=== PATIENT | female | born 1955 | race Caucasian/White ===

== ENCOUNTER 2017-03-16 00:20 | Inpatient (IN) | payer OTHER, MEDICARE ==
[~2017-03-16] VITALS: Ht 160 cm; Wt 63.5 kg
[~2017-03-16 00:20] MED LIST: ACET-2619 PO; AMLO5TAB PO; ASPI81CT89 PO; BACL10TA4 PO; CALC100T4 PO; CARV6.25 PO; CATALYN PO; MAGN400T11 PO; METF500T PO; NITR0.4T2 SL; PARO30TA22 PO; SIMV10TA1 PO; [UNRECOGNIZED DRUG - CODE] PO; [UNRECOGNIZED DRUG - OTHER] PO; [UNRECOGNIZED DRUG - OTHER] PO
--- NOTE | 2017-03-16 00:26 | NUR ---
PT ABDIEL INIGUEZS. TAKEN TO BED 4
--- NOTE | 2017-03-16 00:26 | NUR ---
62Y F BIBA FOR FALL, WHILE TRYING TO REACH HER FAN AT [facility]. C/O PAIN TO LEFT LEG AND RIGHT LEG BOTH BELOW THE KNEE. FACILITY GAVE HER NORCO AROUND 2300. PT DENIES ANY N/V/D. HX GERD;HTN;HYPERLIPIDEMIA
--- NOTE | 2017-03-16 00:27 | NUR ---
Dr. Choi evaluating patient at bedside.
[2017-03-16 00:34] VITALS: BP 138/78
--- NOTE | 2017-03-16 00:34 | NUR ---
Janie garcia in [facility] - 03/16/17 at [address] Choi evaluating patient at bedside.
[2017-03-16] MEDS ORDERED: KETOROLAC 30 MG/ML VIAL IVP ONE (00:35)
--- NOTE | 2017-03-16 00:49 | NUR ---
X-Ray at bedside.
[2017-03-16] MEDS ORDERED: MORPHINE SULFATE 4 MG/ML SYR IVP ONE (01:05)
--- NOTE | 2017-03-16 01:48 | NUR ---
XRAY CONT AT BEDSIDE, FAMILY AT BEDSIDE. IVP PAIN MEDS GIVEN. RESP E/U, PERRLA, AT THIS TIME.
[2017-03-16 03:55] LABS: BASOPHILS # (AUTO) 0.3 K/uL (0.00-0.22); BASOPHILS % (AUTO) 3.9 % (0.0-2.0); EOSINOPHILS # (AUTO) 0.2 K/uL (0-0.4); EOSINOPHILS % (AUTO) 1.9 % (0.0-4.0); HEMATOCRIT 39.6 % (36-48); HEMOGLOBIN 12.4 g/dL (12.0-16.0); LYMPHOCYTES # (AUTO) 1.5 K/uL (2.5-16.5); LYMPHOCYTES % (AUTO) 18.9 % (20.5-51.1); MEAN CORPUSCULAR HEMOGLOBIN 25 pg (27-31); MEAN CORPUSCULAR HGB CONC 31 g/dL (33-37); MEAN CORPUSCULAR VOLUME 79 fL (80-94); MONOCYTES # (AUTO) 0.4 K/uL (0.8-1.0); MONOCYTES % (AUTO) 4.9 % (1.7-9.3); NEUTROPHILS # (AUTO) 5.6 K/uL (1.8-7.7); NEUTROPHILS % (AUTO) 70.4 % (42.2-75.2); PLATELET COUNT (AUTO) 161 K/uL (140-450); RED BLOOD CELL COUNT(AUTO) 5.04 MIL/uL (4.20-5.40); RED CELL DISTRIBUTION WIDTH 15.9 % (11.6-13.7)
[2017-03-16 04:05] LABS: ALBUMIN 3.4 g/dL (3.4-5.0); CALCIUM 8.7 mg/dL (8.5-10.1); CARBON DIOXIDE 27.4 mmol/L (21-32); CREATININE 0.6 mg/dL (0.6-1.3); POTASSIUM 4.4 mmol/L (3.5-5.1); TOTAL BILIRUBIN 0.4 mg/dL (0.0-1.0); TOTAL PROTEIN, SERUM 7.3 g/dL (6.4-8.2)
--- NOTE | 2017-03-16 04:33 | NUR ---
AWATING TELE FOR ROOM#
[2017-03-16] MEDS ORDERED: ONDANSETRON 4 MG/2 ML VIAL IM/IVP PRN (04:45)
[2017-03-16] MEDS ORDERED: DOCUSATE SODIUM 100 MG GELCAP PO PRN (04:45)
[2017-03-16] MEDS ORDERED: ACETAMINOPHEN 325 MG TAB PO PRN (04:45)
--- NOTE | 2017-03-16 04:48 | NUR ---
Patient will be admitted to care of DR VILLAR . Admited to TELE 120A. Will go to room 120A. Belongings list completed. Report to KATRIN HANEY .
[2017-03-16 05:25] VITALS: BP 100/57
--- NOTE | 2017-03-16 05:25 | NUR ---
ADMITTED A 62F FROM ER. TELE PT. [facility] HANANE TIBIA,FIBULA NECK FRACTURE. S/P FALL . TRANSFERRED FROM [facility] TO BED WITH PRECAUTION. BEDREST. WITH HL ON THE RT AC #22, CLEAR AND PATENT. REPOSITIONED FOR COMFORT. ORIENTED TO HOSPITAL ROUTINES. PLAN OF CARE DISCUSSED WITH PT, NEED REINFORCEMENT. INSTRUCTED NPO STATUS. BED ON LOW POSITION. CALL LIGHT PLACED WITHIN EASY REACH . WILL CONTINUE TO MONITOR.
[2017-03-16] MEDS: NACL 0.9% 1,000 ML IV SCH ×2 (05:31→20:41)
--- NOTE | 2017-03-16 05:31 | NUR ---
IVF STARTED TO THE RT AC. INFUSING WELL.
[2017-03-16 06:38] LABS: CHOL/HDL RATIO 2.8 (1-4.5); FREE T4 (FREE THYROXINE) 1.09 ng/dL (0.76-1.46); MAGNESIUM 1.9 mg/dL (1.8-2.4); PHOSPHORUS 4.2 mg/dL (2.5-4.9); THYROID STIMULATING HORMONE 5.93 uIU/mL (0.34-3.76)
--- NOTE | 2017-03-16 07:33 | NUR ---
ENDORSED PT IN STABLE CONDITION TO AM NURSE FOR CONTINUITY OF CARE.
--- NOTE | 2017-03-16 07:35 | NUR ---
REPORT RECEIVED FROM MATHEMATICAL TECHNICIAN, PT AWAKE ALERT, RESP EVEN UNLABORED ON RA, SWELLING AND BRUISING NOTED JUST BELOW KNEES BILAT, GOOD PEDAL PULSE NOTED BILAT, PT DENIES ACUTE PAIN, DENIES NEED FOR PAIN MEDS, PLAN OF CARE REVIEWED, PT AWARE OF NPO, SISTER AT BEDSIDE, PT REMAINS ON TOOL ROOM ATTENDANT, SIDE RAILS UP, BED LOCKED IN LOW POSITION, CALL REEVES WITHIN REACH, WILL CONTINUE TO MONITOR.
[2017-03-16 08:00] VITALS: BP 119/67
[2017-03-16] MEDS ORDERED: NITROGLYCERIN 0.4 MG TAB SL PRN (08:50)
--- NOTE | 2017-03-16 08:53 | NUR ---
PER DR VILLAR, 16F DIAZ CATH INSERTED, DARK YELLOW URINE RETURNED, PT HARIS WELL.
--- NOTE | 2017-03-16 08:55 | NUR ---
PATIENT HAS BEEN SCREENED AND CATEGORIZED MODERATE NUTRITION RISK. PATIENT WILL BE SEEN WITHIN 3-5 DAYS OF ADMISSION. 03/18/17-03/20/[address]
[2017-03-16] MEDS ORDERED: NON-FORMULARY ITEM (Potassium Chloride 20 MEQ) PO SCH (09:00)
[2017-03-16] MEDS ORDERED: CALCIUM 100 MG PO SCH (09:00)
[2017-03-16] MEDS ORDERED: DEXTROSE 50% 50 ML SYR IVP PRN (09:05)
[2017-03-16] MEDS ORDERED: metFORMIN 500 MG TAB PO SCH (09:25)
[2017-03-16 09:38] LABS: ANION GAP 12.9 (8-16); CALCIUM 7.9 mg/dL (8.5-10.1); CARBON DIOXIDE 26.2 mmol/L (21-32); CREATININE 0.6 mg/dL (0.6-1.3); POTASSIUM 4.1 mmol/L (3.5-5.1); PROTHROMBIN TIME 10.5 secs (10.8-13.4)
[2017-03-16] MEDS: amLODIPine 5 MG TAB PO SCH (09:38)
[2017-03-16] MEDS: ASPIRIN 81 MG TAB.CHEW PO SCH (09:38)
[2017-03-16] MEDS: CARVEDILOL 6.25 MG TAB PO SCH ×2 (09:39→20:40)
[2017-03-16] MEDS: MAGNESIUM OXIDE 400 MG TAB PO SCH ×2 (09:39→20:40)
[2017-03-16] MEDS: BACLOFEN 10 MG TAB PO SCH (09:39)
[2017-03-16] MEDS: HYDROcodone/APAP 7.5/325 MG 1 TAB PO PRN (09:46)
[2017-03-16] MEDS ORDERED: CALCIUM GLUCONATE 500 MG TAB PO SCH (11:02)
[2017-03-16] MEDS: BLOOD GLUCOSE MONITORING 1 DEV DEV FS SCH ×3 (11:53→20:31)
[2017-03-16 12:02] VITALS: BP 100/63
--- NOTE | 2017-03-16 12:39 | NUR ---
DR SALAZAR TO BEDSIDE FOR EVAL.
--- NOTE | 2017-03-16 13:20 | NUR ---
PLAN FOR MANIPULATION OF BILAT LEGS WITH SPLINT/CAST PLACEMENT UNDER SEDATION. PT AND FAMILY AGREE WITH PLAN. CONSENT SIGNED BY SISTER.
--- NOTE | 2017-03-16 13:29 | NUR ---
PT TAKEN TO OR AT THIS TIME ACCOMPANIED BY SISTER..
[2017-03-16] MEDS ORDERED: PROPOFOL 200 MG/20 ML VIAL IV ONE (13:48)
[2017-03-16] MEDS ORDERED: fentaNYL 0.05 MG/ML VIAL ONE (13:53)
[2017-03-16] MEDS ORDERED: MIDAZOLAM 2 MG/2 ML VIAL ONE (13:53)
[2017-03-16] MEDS ORDERED: KETOROLAC 30 MG/ML VIAL IVP PRN (14:15)
--- NOTE | 2017-03-16 15:08 | NUR ---
PT BACK FROM PACU, REPORT RECEIVED FROM SHAYE HANEY, PT AWAKE ALERT, RESP EVEN UNLABORED ON ROOM AIR, VS 105/56, 76, 96% RA, RR 19, PT REPORTS NO PAIN AT THIS TIME, BIALT LOWER EXT IN BRACES, GOOD CMS DISTALLY, PT DENIES N/V, CLEAR LIQ PO STARTED, CALL REEVES WITH IN REACH, SIDE RAILS UP, BED LOCKED IN LOW POSITION, SISTER AT BEDSIDE, WILL CONTINUE TO MONITOR.
[2017-03-16 16:00] VITALS: BP 106/56
--- NOTE | 2017-03-16 18:00 | NUR ---
PT SITTING UP EATING DINNER, HARIS WELL, PT DENIES PAIN OR DISCOMFORT, PT ON WASTE MANAGEMENT SPECIALIST, CALL REEVES AT BEDSIDE, SIDE RAILS UP, WILL CONTINUE TO MONITOR.
--- NOTE | 2017-03-16 19:00 | NUR ---
PT UPSET ABOUT NOISE FROM ROOM MATE'S VISITORS, STATES SHE IS HURTING BUT DENIES NEED FOR PAIN MEDS, PT STATES IM TOO DISTRACTED WITH NOISE, REQUESTED ROOMMATE TO KEEP NOISE DOWN, SISTER AT BEDSIDE, PLAN OF CARE DISCUSSED, IFV INFUSING, SITE CLEAR, BILAT BRACES IN PLACE, GOOD CMS DISTALLY, WILL CONTINUE TO MONITOR.
--- NOTE | 2017-03-16 19:29 | NUR ---
REPORT GIVEN TO WASH DRILLER HELPER RN, PT IN STABLE CONDITION.
--- NOTE | 2017-03-16 19:30 | NUR ---
RECEIVED REPORT FROM MORNING SHIFT RN AT BEDSIDE, PT IS AAOX4, ABLE TO FOLLOW COMMANDS AND MAKE NEEDS KNOWN. VSS, DENIES PAIN, NO S/S OF SOB/DISTRESS, CLEAR LUNG SOUND, ON RA. DENIES CHEST PAIN, SR ON TELE MONITOR. SOFT ABDOMEN WITH ACTIVE BOWEL SOUNDS, DIAZ CATHETER IN PLACE, UNABLE TO MOVE BLE, AFEBRILE, SKIN IS INTACT, WARM AND DRY TO TOUCH, IV SITE TO RIGHT AC 22GA, RUNNING NS AT 60ML/HR. EXPLAINED PLAN OF CARE TO PT, PT VERBALIZED UNDERSTANDING, PLACED PATIENT AT A COMFORT POSITION, SAFETY MEASURES IN PLACE, CALL LIGHT WITHIN REACH, WILL CONTINUE TO MONITOR.
[2017-03-16 20:00] VITALS: BP 107/62
[2017-03-16] MEDS: INSULIN LISPRO SLIDING SCALE 100 UNITS/ML VIAL SUBQ PRN (20:32)
[2017-03-16] MEDS: SIMVASTATIN 10 MG TAB PO SCH (20:41)
[2017-03-16] MEDS: PARoxetine 10 MG TAB PO SCH (20:47)
[2017-03-17] VITALS: BP 98/60
--- NOTE | 2017-03-17 | NUR ---
PT IS ASLEEP IN BED, VSS, NO C/O PAIN, NO CHANGE OF CONDITION AT THIS TIME.
[2017-03-17 04:00] VITALS: BP 96/61
--- NOTE | 2017-03-17 04:00 | NUR ---
PT IS RESTING IN BED, DENIES PAIN, NO CHANGE OF CONDITION AT THIS TIME. VSS.
[2017-03-17] MEDS: BLOOD GLUCOSE MONITORING 1 DEV DEV FS SCH ×4 (06:50→21:06)
[2017-03-17] MEDS: NACL 0.9% 1,000 ML IV SCH (06:50)
[2017-03-17 07:08] LABS: BASOPHILS # (AUTO) 0.1 K/uL (0.00-0.22); BASOPHILS % (AUTO) 0.9 % (0.0-2.0); EOSINOPHILS # (AUTO) 0.1 K/uL (0-0.4); EOSINOPHILS % (AUTO) 1.5 % (0.0-4.0); HEMATOCRIT 26.8 % (36-48); HEMOGLOBIN 8.7 g/dL (12.0-16.0); LYMPHOCYTES # (AUTO) 1.5 K/uL (2.5-16.5); LYMPHOCYTES % (AUTO) 26.5 % (20.5-51.1); MEAN CORPUSCULAR HEMOGLOBIN 25 pg (27-31); MEAN CORPUSCULAR HGB CONC 33 g/dL (33-37); MEAN CORPUSCULAR VOLUME 76 fL (80-94); MONOCYTES # (AUTO) 0.4 K/uL (0.8-1.0); MONOCYTES % (AUTO) 6.6 % (1.7-9.3); NEUTROPHILS # (AUTO) 3.5 K/uL (1.8-7.7); NEUTROPHILS % (AUTO) 64.5 % (42.2-75.2); PLATELET COUNT (AUTO) 125 K/uL (140-450); RED BLOOD CELL COUNT(AUTO) 3.51 MIL/uL (4.20-5.40); RED CELL DISTRIBUTION WIDTH 15.5 % (11.6-13.7); WHITE BLOOD COUNT (AUTO) 5.6 K/uL (4.8-10.8)
--- NOTE | 2017-03-17 07:08 | NUR ---
REPORT GIVEN TO MORNING SHIFT NURSE FOR CONTINUE OF CARE, PT IS IN STABLE CONDITION AT THIS TIME.
--- NOTE | 2017-03-17 07:20 | NUR ---
REPORT RECEIVED FROM MILK TRUCK DRIVER, PT SLEEPING QUIETLY, AROUSES EASILY BY VOICE, RESP EVEN UNLABORED, SKIN WARM DRY COLOR WNL, BILAT LEGS IN BRACES, GOOD CMS DISTALLY, PLAN OF CARE DISCUSSED, CALL REEVES WITHIN REACH, SIDE RAILS UP, BED LOCKED IN LOW POSITION, WILL CONTINUE TO MONITOR.
[2017-03-17 07:28] LABS: ANION GAP 10.7 (8-16); CALCIUM 7.5 mg/dL (8.5-10.1); CARBON DIOXIDE 23.8 mmol/L (21-32); CREATININE 0.5 mg/dL (0.6-1.3); POTASSIUM 3.5 mmol/L (3.5-5.1)
[2017-03-17 07:29] LABS: MAGNESIUM 1.8 mg/dL (1.8-2.4); PHOSPHORUS 2.5 mg/dL (2.5-4.9)
[2017-03-17 08:00] VITALS: BP 118/57
[2017-03-17] MEDS: MAGNESIUM OXIDE 400 MG TAB PO SCH ×2 (08:00→21:00)
[2017-03-17] MEDS: metFORMIN 500 MG TAB PO SCH (08:01)
[2017-03-17] MEDS: BACLOFEN 10 MG TAB PO SCH (08:01)
[2017-03-17] MEDS: ASPIRIN 81 MG TAB.CHEW PO SCH (08:01)
[2017-03-17] MEDS: CARVEDILOL 6.25 MG TAB PO SCH ×2 (08:02→21:01)
[2017-03-17] MEDS: amLODIPine 5 MG TAB PO SCH (08:02)
[2017-03-17] MEDS: POTASSIUM CHLORIDE 20% 40 MEQ/15 ML UDC PO SCH (08:03)
[2017-03-17] MEDS: HYDROcodone/APAP 7.5/325 MG 1 TAB PO PRN (08:03)
[2017-03-17] MEDS: CALCIUM GLUCONATE 500 MG TAB PO SCH (08:18)
[2017-03-17 09:07] LABS: T4 (THYROXINE) 7.7 ug/dL (4.5-12.0)
[2017-03-17] MEDS: MORPHINE SULFATE 2 MG/ML SYR IVP PRN ×2 (09:24→15:49)
--- NOTE | 2017-03-17 09:24 | NUR ---
PT WITH LARGE BM, PERICARE DONE, BED BATH GIVEN, MEDICATED WITH MORPHINE FOR PAIN, PT HARIS FAIRLY, BIALT LEGS ELEVATED, GOOD CMS DISTALLY, PROXIMAL LATERAL PART OF BRACE PADDED TO PROTECT SKIN, SISTER AT BEDSIDE, PT REMAINS ON BUCKET WASH OPERATOR, BED LOCKED IN LOW POSITION, SIDE RAILS UP, CALL REEVES WITHIN REACH, WILL CONTINUE TO MONITOR.
[2017-03-17] MEDS ORDERED: MUPIROCIN 2% OINT 22 GM TUBE TP SCH (10:35)
--- NOTE | 2017-03-17 11:30 | NUR ---
PT RESTING QUIETLY IN NAD, RESP EVEN UNLABORED, SKIN WARM DRY COLOR WNL, PT DENIES PAIN, BRACES REMAIN IN PLACE, GOOD CMS DISTALLY, PAD CHECKED, DRY NOW, SISTER AT BEDSIDE, FINGER STICK GLUCOSE 119. WILL CONTINUE TO RAMONITA
[2017-03-17] MEDS: CHLORHEXADINE GLUC 2% CLOTH TP SCH (11:49)
[2017-03-17] MEDS: MUPIROCIN 2% OINT 22 GM TUBE TP SCH (11:50)
--- NOTE | 2017-03-17 11:52 | NUR ---
Social Service Note: 10:30 am: I faxed inquiry to [facility], phone number , fax and spoke with Jossie from admission dept. Per December, she will call me back in 30 minutes. 11:35am: I called [facility], December not available, left her message. I called and spoke with Clotilde from [facility] , fax number , I faxed inquiry.
[2017-03-17 12:00] VITALS: BP 108/64
--- NOTE | 2017-03-17 12:59 | NUR ---
Social Service Note: I called and spoke with patient's sister Jaylyn and I explained to her that at this time there is no other accepting snf. Jaylyn verbalized understanding. Per Jaylyn, she would like [place] [facility] [place]
[2017-03-17 13:16] LABS: HEMOGLOBIN A1C 5.9 % (4.8-5.6)
--- NOTE | 2017-03-17 15:02 | NUR ---
PT RESTING QUIETLY IN NAD, RESP EVEN UNLABORED SKIN WARM DRY COLR WNL, POSITION CHANGED, SISTERS AT BEDSIDE, DIAPER DRY, SILL CONTINUE TO MONITOR.
[2017-03-17 16:00] VITALS: BP 111/70
--- NOTE | 2017-03-17 18:20 | NUR ---
PT SITTING UP EATING DINNER, AGGITATED WITH MULTIPLE STAFF ENTERING HER ROOM, PT DENIES PAIN OR DISCOMFORT, DENIES NEED FOR PAIN MED, PT ENCOURAGED TO INFORM NURSE OF ANY PAIN OR DISCOMFORT, SISTER AT BEDSIDE, PT REMAINS ON OVER SHORT AND DAMAGE CLERK, CALL LALA MENDOSA, SAFETY MEASURES IN PLACE, WILL CONTINUE TO MONITOR.
--- NOTE | 2017-03-17 19:09 | NUR ---
REPORT GIVEN TO HAND THERMAL CUTTER NURSE, PT IN STABLE CONDITION
--- NOTE | 2017-03-17 19:10 | NUR ---
RECEIVED REPORT FROM MEDINA MEDRANO AT BEDSIDE. INITIAL ASSESSMENT COMPLETED. PT AAOX4; FORGETFUL AT TIMES. PT EATING DINNER AT THIS TIME. PT BEDREST. PT HAS BILATERAL LOWER EXTREMITIES BRACES DUE TO FIBULA/TIBIAL FRACTURE. PT HAS IV ON RIGHT AC G 22; ASYMPTOMATIC, PATENT AND INTACT INFUSING FLUIDS WELL. ORIENTED PT TO ROOM AND SURROUNDING AND USE OF CALL LIGHT. EXPLAINED PLAN OF CARE TO PT AND SHE VERBALIZES UNDERSTANDING. WILL CONTINUE TO MONITOR PT.
[2017-03-17 20:00] VITALS: BP 113/68
[2017-03-17] MEDS: SIMVASTATIN 10 MG TAB PO SCH (21:00)
[2017-03-17] MEDS: PARoxetine 10 MG TAB PO SCH (21:00)
[2017-03-17] MEDS: INSULIN LISPRO SLIDING SCALE 100 UNITS/ML VIAL SUBQ PRN (21:06)
--- NOTE | 2017-03-17 21:08 | NUR ---
PT TOLERATED 2100 MEDS WELL. WILL CONTINUE TO MONITOR PT.
--- NOTE | 2017-03-17 22:35 | NUR ---
PT WATCHING TV. PT GETS ANGRY WHEN WE WALK IN THE ROOM TO CHECK ON HER. WILL CONTINUE TO MONITOR PT.
--- NOTE | 2017-03-17 23:25 | NUR ---
ASSISTED PT TO AMBULATE TO THE RESTROOM; PT BACK IN BED NOW. PT DENIES DISCOMFORT. WILL CONTINUE TO MONITOR PT. Addendum: 03/18/17 at 0037 by Pura Richardson RN WRONG ENTRY IN WRONG PT.
--- NOTE | 2017-03-17 23:25 | NUR ---
CHECKED ON PT. VS STABLE, PT DENIES PAIN. WILL CONTINUE TO MONITOR PT.
[2017-03-18] VITALS: BP 118/71
--- NOTE | 2017-03-18 02:23 | NUR ---
PT SLEEPING AT THIS TIME, NO SIGNS OF DISTRESS OR DISCOMFORT NOTED. IV FLUIDS INFUSING WELL. WILL CONTINUE TO MONITOR PT.
[2017-03-18 04:00] VITALS: BP 128/75
--- NOTE | 2017-03-18 04:20 | NUR ---
CHECKED PT'S VS. VS STABLE, IV INFUSING FLUIDS WELL. WILL CONTINUE TO MONITOR PT.
[2017-03-18] MEDS: BLOOD GLUCOSE MONITORING 1 DEV DEV FS SCH ×4 (06:32→20:48)
--- NOTE | 2017-03-18 06:33 | NUR ---
PT WATCHING TV AT THIS TIME. NO SIGNS OF DISTRESS OR DISCOMFORT NOTED. WILL CONTINUE TO MONITOR PT.
[2017-03-18] MEDS: NACL 0.9% 1,000 ML IV SCH ×2 (06:44→17:32)
[2017-03-18 07:24] LABS: ANION GAP 8.9 (8-16); CALCIUM 7.3 mg/dL (8.5-10.1); CARBON DIOXIDE 25.6 mmol/L (21-32); CREATININE 0.4 mg/dL (0.6-1.3); POTASSIUM 3.5 mmol/L (3.5-5.1)
--- NOTE | 2017-03-18 07:30 | NUR ---
RECEIVED PATIENT AT BEDSIDE. PATIENT ASLEEP BUT EASILY AROUSABLE. NO S/S OF DISTRESS NOTED. NO C/O PAIN AT THIS TIME. DIAZ CATHETER IN PLACE, DRAINING CLEAR YELLOW URINE. BRACES NOTED TO BILATERAL LEGS AND HIPS. IV TO THE RIGHT AC INTACT AND ASYMPTOMATIC. PATIENT ON TELE MONITORING. BED LOWERED WITH CALL LIGHT WITHIN REACH. WILL CONTINUE TO MONITOR
[2017-03-18 07:32] LABS: BASOPHILS # (AUTO) 0.1 K/uL (0.00-0.22); BASOPHILS % (AUTO) 1.3 % (0.0-2.0); EOSINOPHILS # (AUTO) 0.1 K/uL (0-0.4); EOSINOPHILS % (AUTO) 2.6 % (0.0-4.0); HEMATOCRIT 25.8 % (36-48); HEMOGLOBIN 8.2 g/dL (12.0-16.0); LYMPHOCYTES # (AUTO) 1.6 K/uL (2.5-16.5); LYMPHOCYTES % (AUTO) 30.3 % (20.5-51.1); MEAN CORPUSCULAR HEMOGLOBIN 25 pg (27-31); MEAN CORPUSCULAR HGB CONC 32 g/dL (33-37); MEAN CORPUSCULAR VOLUME 78 fL (80-94); MONOCYTES # (AUTO) 0.4 K/uL (0.8-1.0); NEUTROPHILS # (AUTO) 3.1 K/uL (1.8-7.7); NEUTROPHILS % (AUTO) 58.8 % (42.2-75.2); PLATELET COUNT (AUTO) 117 K/uL (140-450); RED BLOOD CELL COUNT(AUTO) 3.33 MIL/uL (4.20-5.40); RED CELL DISTRIBUTION WIDTH 15.6 % (11.6-13.7); WHITE BLOOD COUNT (AUTO) 5.3 K/uL (4.8-10.8)
--- NOTE | 2017-03-18 07:35 | NUR ---
ENDORSED PLAN OF CARE TO MEDINA MALDONADO IN STABLE CONDITION.
[2017-03-18 08:00] VITALS: BP 115/64
[2017-03-18] MEDS: metFORMIN 500 MG TAB PO SCH (08:43)
[2017-03-18] MEDS: BACLOFEN 10 MG TAB PO SCH (08:43)
[2017-03-18] MEDS: ASPIRIN 81 MG TAB.CHEW PO SCH (08:43)
[2017-03-18] MEDS: CALCIUM GLUCONATE 500 MG TAB PO SCH (08:43)
[2017-03-18] MEDS: MAGNESIUM OXIDE 400 MG TAB PO SCH ×2 (08:43→20:44)
[2017-03-18] MEDS: amLODIPine 5 MG TAB PO SCH (08:44)
[2017-03-18] MEDS: POTASSIUM CHLORIDE 20% 40 MEQ/15 ML UDC PO SCH (08:44)
[2017-03-18] MEDS: CARVEDILOL 6.25 MG TAB PO SCH ×2 (08:44→20:44)
[2017-03-18] MEDS: MORPHINE SULFATE 2 MG/ML SYR IVP PRN (10:09)
--- NOTE | 2017-03-18 10:35 | NUR ---
PATIENT HAD A LARGE BM. STOOL LOOSE IN CONSISTENCY, LIGHT BROWN IN COLOR. NOTIFIED DR DALE. DR SUGGS PUT ORDERS
[2017-03-18] MEDS ORDERED: LOPERAMIDE 2 MG CAP PO PRN (10:40)
[2017-03-18] MEDS: CHLORHEXADINE GLUC 2% CLOTH TP SCH (11:00)
[2017-03-18 12:00] VITALS: BP 103/51
--- NOTE | 2017-03-18 13:00 | NUR ---
PATIENT CALMLY IN BED WATCHING TELEVISION. NO S/S OF DISTRESS NOTED
[2017-03-18 16:00] VITALS: BP 124/68
--- NOTE | 2017-03-18 16:30 | NUR ---
PATIENT REFUSED BLOOD SUGAR CHECK
--- NOTE | 2017-03-18 19:10 | NUR ---
RECEIVED REPORT FROM MEDINA MALDONADO AT BEDSIDE. INITIAL ASSESSMENT COMPLETED. PT AAOX4; FORGETFUL AT TIMES. PT IN BEDREST. PT HAS BILATERAL LOWER EXTREMITIES BRACES DUE TO FIBULA/TIBIAL FRACTURE. PT HAS IV ON LEFT FOREARM G 22; ASYMPTOMATIC, PATENT AND INTACT INFUSING FLUIDS WELL. PT HAS A DIAZ CATHETER IN PLACE. ORIENTED PT TO ROOM AND SURROUNDING AND USE OF CALL LIGHT. EXPLAINED PLAN OF CARE TO PT AND SISTER WHO IS AT BEDSIDE AND THEY VERBALIZE UNDERSTANDING. WILL CONTINUE TO MONITOR PT.
--- NOTE | 2017-03-18 19:20 | NUR ---
PATIENT REPORT GIVEN AT BEDSIDE. PATIENT ENDORSED IN STABLE CONDITION
--- NOTE | 2017-03-18 19:35 | NUR ---
I WAS ENDORSED THAT PT HAD A LARGE BOWEL MOVEMENT AND THE BRACES ON HER LEGS GOT SOILED. PT WAS CLEANED AND THE BRACES WELL, HOWEVER, THE SMELL OF THE OF THE FECES STILL REMAINS. PT DRY AND CLEAN, WILL CONTINUE TO MONITOR PT.
[2017-03-18 20:00] VITALS: BP 115/66
[2017-03-18] MEDS: INSULIN LISPRO SLIDING SCALE 100 UNITS/ML VIAL SUBQ PRN (20:38)
[2017-03-18] MEDS: PARoxetine 10 MG TAB PO SCH (20:44)
[2017-03-18] MEDS: SIMVASTATIN 10 MG TAB PO SCH (20:44)
--- NOTE | 2017-03-18 20:48 | NUR ---
PT TOLERATED 2100 MEDS WELL. PT REPOSITIONED FOR COMFORT. WILL CONTINUE TO MONITOR PT.
--- NOTE | 2017-03-18 22:35 | NUR ---
PT WATCHING TV. PT GETS ANGRY WHEN WE WALK IN THE ROOM TO CHECK ON HER. WILL CONTINUE TO MONITOR PT.
[2017-03-19] VITALS: BP 118/68
--- NOTE | 2017-03-19 00:05 | NUR ---
PT REPOSITIONED FOR COMFORT. PT UPSET BECAUSE WE REPOSITIONED HER. WE WILL CONTINUE TO MONITOR PT.
--- NOTE | 2017-03-19 03:26 | NUR ---
CHECKED ON PT. PT GETS UPSET WHEN WE WALK INTO THE ROOM. PT ON HER CELL PHONE. WILL CONTINUE TO MONITOR PT.
[2017-03-19 04:00] VITALS: BP 135/72
--- NOTE | 2017-03-19 04:42 | NUR ---
PT REFUSED TO BE REPOSITIONED/TURNED, MIRNA ROMO AND CHEVY TRIED TO CHECK IF PT WAS WET OR SOILED BUT PT REFUSED. WILL CONTINUE TO MONITOR PT.
[2017-03-19] MEDS: BLOOD GLUCOSE MONITORING 1 DEV DEV FS SCH ×4 (06:35→21:12)
[2017-03-19 06:36] LABS: BASOPHILS # (AUTO) 0.1 K/uL (0.00-0.22); BASOPHILS % (AUTO) 1.2 % (0.0-2.0); EOSINOPHILS # (AUTO) 0.2 K/uL (0-0.4); EOSINOPHILS % (AUTO) 2.6 % (0.0-4.0); HEMATOCRIT 27.3 % (36-48); HEMOGLOBIN 8.7 g/dL (12.0-16.0); LYMPHOCYTES # (AUTO) 1.7 K/uL (2.5-16.5); LYMPHOCYTES % (AUTO) 25.5 % (20.5-51.1); MEAN CORPUSCULAR HEMOGLOBIN 25 pg (27-31); MEAN CORPUSCULAR HGB CONC 32 g/dL (33-37); MEAN CORPUSCULAR VOLUME 78 fL (80-94); MONOCYTES # (AUTO) 0.5 K/uL (0.8-1.0); MONOCYTES % (AUTO) 6.9 % (1.7-9.3); NEUTROPHILS # (AUTO) 4.3 K/uL (1.8-7.7); NEUTROPHILS % (AUTO) 63.8 % (42.2-75.2); PLATELET COUNT (AUTO) 122 K/uL (140-450); RED CELL DISTRIBUTION WIDTH 15.6 % (11.6-13.7); WHITE BLOOD COUNT (AUTO) 6.8 K/uL (4.8-10.8)
[2017-03-19 07:01] LABS: ANION GAP 11.6 (8-16); CALCIUM 7.5 mg/dL (8.5-10.1); CARBON DIOXIDE 26.2 mmol/L (21-32); CREATININE 0.5 mg/dL (0.6-1.3); POTASSIUM 3.8 mmol/L (3.5-5.1)
--- NOTE | 2017-03-19 07:15 | NUR ---
Received patient from shopping inspector RN, patient alert and oriented, communicating well, denies any pain at this time.
--- NOTE | 2017-03-19 07:15 | NUR ---
ENDORSED PLAN OF CARE TO DAY SHIFT RN. PT IN STABLE CONDITION.
[2017-03-19 08:00] VITALS: BP 129/71
[2017-03-19] MEDS: POTASSIUM CHLORIDE 20% 40 MEQ/15 ML UDC PO SCH (09:48)
[2017-03-19] MEDS: BACLOFEN 10 MG TAB PO SCH (09:49)
[2017-03-19] MEDS: CARVEDILOL 6.25 MG TAB PO SCH ×2 (09:49→20:19)
[2017-03-19] MEDS: amLODIPine 5 MG TAB PO SCH (09:49)
[2017-03-19] MEDS: metFORMIN 500 MG TAB PO SCH (09:49)
[2017-03-19] MEDS: MAGNESIUM OXIDE 400 MG TAB PO SCH (09:49)
[2017-03-19] MEDS: ASPIRIN 81 MG TAB.CHEW PO SCH (09:50)
[2017-03-19] MEDS: MUPIROCIN 2% OINT 22 GM TUBE TP SCH (09:50)
[2017-03-19] MEDS: CHLORHEXADINE GLUC 2% CLOTH TP SCH (11:00)
[2017-03-19 12:00] VITALS: BP 103/65
[2017-03-19] MEDS: CALCIUM GLUCONATE 500 MG TAB PO SCH (12:45)
[2017-03-19] MEDS: INSULIN LISPRO SLIDING SCALE 100 UNITS/ML VIAL SUBQ PRN ×2 (12:49→21:16)
--- NOTE | 2017-03-19 14:47 | NUR ---
Patient lying in bed, resting comfortably, no signs of distress noted.
[2017-03-19 16:00] VITALS: BP 115/61
--- NOTE | 2017-03-19 18:45 | NUR ---
Patient lying in bed, resting comfortably, denies any pain at this time.
--- NOTE | 2017-03-19 19:23 | NUR ---
Endorsed Plan of care to shift foreman, RN.
--- NOTE | 2017-03-19 19:30 | NUR ---
RECEIVED REPORT FROM LEONORA HANEY AT BEDSIDE. PT IS ALERT AWAKE ORIENTED X3 WITH PERIOD OF CONFUSION. INITIAL ASSESSMENT DONE. NO S/S OF RESPIRATORY DISTRESS OR SOB NOTED. NO C/O PAIN OR ANY DISCOMFORT AT THIS TIME. ON DIAZ CATHETER AND DRAINING WELL. PLAN OF CARE REVIEWED TO PT AND VERBALIZED UNDERSTANDING AND NEED TO BE REINFORCED. CALL LIGHT WITHIN REACH. WILL CONTINUE TO MONITOR.
[2017-03-19 20:00] VITALS: BP 122/64
[2017-03-19] MEDS: SIMVASTATIN 10 MG TAB PO SCH (20:20)
[2017-03-19] MEDS: PARoxetine 10 MG TAB PO SCH (20:21)
[2017-03-19] MEDS: NACL 0.9% 1,000 ML IV SCH (23:24)
[2017-03-20] VITALS (7 sets, daily range): BP systolic 105–118; BP diastolic 58–67
--- NOTE | 2017-03-20 00:20 | NUR ---
PT IS SLEEPING RIGHT NOW BUT EASILY AROUSABLE. NO S/S OF ANY DISCOMFORT AT THIS TIME. ALL NEEDS ARE ATTENDED. CALL LIGHT WITHIN REACH. WILL CONTINUE TO MONITOR.
--- NOTE | 2017-03-20 05:15 | NUR ---
AM CARE RENDERED. BED LINEN CHANGED. REPOSITIONED PATIENT. KEPT CLEAN AND DRY. CALL LIGHT WITHIN REACH. WILL CONTINUE TO MONITOR.
[2017-03-20 06:35] LABS: BASOPHILS # (AUTO) 0.1 K/uL (0.00-0.22); BASOPHILS % (AUTO) 2.2 % (0.0-2.0); EOSINOPHILS # (AUTO) 0.2 K/uL (0-0.4); HEMATOCRIT 25.8 % (36-48); HEMOGLOBIN 8.2 g/dL (12.0-16.0); LYMPHOCYTES # (AUTO) 1.7 K/uL (2.5-16.5); LYMPHOCYTES % (AUTO) 30.7 % (20.5-51.1); MEAN CORPUSCULAR HEMOGLOBIN 25 pg (27-31); MEAN CORPUSCULAR HGB CONC 32 g/dL (33-37); MEAN CORPUSCULAR VOLUME 78 fL (80-94); MONOCYTES # (AUTO) 0.4 K/uL (0.8-1.0); NEUTROPHILS % (AUTO) 56.1 % (42.2-75.2); PLATELET COUNT (AUTO) 139 K/uL (140-450); RED BLOOD CELL COUNT(AUTO) 3.31 MIL/uL (4.20-5.40); WHITE BLOOD COUNT (AUTO) 5.4 K/uL (4.8-10.8)
[2017-03-20] MEDS: BLOOD GLUCOSE MONITORING 1 DEV DEV FS SCH ×4 (06:40→21:00)
--- NOTE | 2017-03-20 07:14 | NUR ---
PT HAS NO S/S OF ANY DISCOMFORT. PLAN OF CARE ENDORSED TO KATHRYN HANEY AT BEDSIDE FOR CONTINUITY OF CARE.
[2017-03-20 07:16] LABS: ANION GAP 12.6 (8-16); CALCIUM 7.6 mg/dL (8.5-10.1); CARBON DIOXIDE 24.5 mmol/L (21-32); CREATININE 0.4 mg/dL (0.6-1.3); POTASSIUM 4.1 mmol/L (3.5-5.1)
--- NOTE | 2017-03-20 07:17 | NUR ---
RECEIVED REPORT FROM NIGHT RN. PT RESTING IN BED. AAOX4, WITH PERIODS OF FORGETFULNESS. IV SITE PATENT AND INTACT. PT DENIES PAIN. DIAZ CATHETER PATENT. BRACES TO BLE NOTED. CALL LIGHT WITHIN REACH. SAFETY MEASURES ENSURED. WILL CONTINUE TO MONITOR.
[2017-03-20] MEDS: ASPIRIN 81 MG TAB.CHEW PO SCH (08:49)
[2017-03-20] MEDS: metFORMIN 500 MG TAB PO SCH (08:49)
[2017-03-20] MEDS: POTASSIUM CHLORIDE 20% 40 MEQ/15 ML UDC PO SCH (08:49)
[2017-03-20] MEDS: BACLOFEN 10 MG TAB PO SCH (08:49)
[2017-03-20] MEDS: amLODIPine 5 MG TAB PO SCH (08:50)
[2017-03-20] MEDS: CARVEDILOL 6.25 MG TAB PO SCH ×2 (08:50→21:00)
[2017-03-20] MEDS: CALCIUM GLUCONATE 500 MG TAB PO SCH (08:53)
[2017-03-20] MEDS: MUPIROCIN 2% OINT 22 GM TUBE TP SCH (08:53)
--- NOTE | 2017-03-20 08:57 | NUR ---
AM MEDICATIONS GIVEN WITH EDUCATION. PT VERBALIZED UNDERSTANDING. PT TOLERATED WELL. WILL CONTINUE TO MONITOR.
[2017-03-20] MEDS: CHLORHEXADINE GLUC 2% CLOTH TP SCH (10:50)
--- NOTE | 2017-03-20 11:40 | NUR ---
PT RESTING IN BED. NO S/S OF ACUTE DISTRESS. PT DENIES PAIN. CALL LIGHT WITHIN REACH. WILL CONTINUE TO MONITOR.
[2017-03-20] MEDS: INSULIN LISPRO SLIDING SCALE 100 UNITS/ML VIAL SUBQ PRN (12:16)
[2017-03-20] MEDS ORDERED: ACET-9525 PO (13:01)
--- NOTE | 2017-03-20 14:25 | NUR ---
PT RESTING IN BED. NO S/S OF ACUTE DISTRESS. PT DENIES PAIN. CALL LIGHT WITHIN REACH. SAFETY MEASURES ENSURED. WILL CONTINUE TO MONITOR.
--- NOTE | 2017-03-20 14:33 | NUR ---
CM NOTE PATIENT TO BE PICKED UP VIA GURNEY BY [facility] GOING TO [facility]. ETA 1830. ALEA FLOR MADE AWARE. SELENA, SISTER, TO COVER TRANSPORT EXPENSES.
--- NOTE | 2017-03-20 14:45 | NUR ---
03/20/17 RD INITIAL ASSESSMENT COMPLETED PLEASE REFER TO NUTRITION ASSESSMENT UNDER CARE ACTIVITY FOR ESTIMATED NUTRITIONAL NEEDS. RECOMMEND DIET CHANGE FROM CARDIAC TO 60GM CONSISTENT CARBOHYDRATE, CARDIAC DIET 2. RD TO FOLLOW-UP 3-5 DAYS; MODERATE RISK NEAL DRIVER RD
--- NOTE | 2017-03-20 14:49 | NUR ---
REPORT GIVEN TO JEROME HANEY AT [facility]. REID SISTER AND PT MADE AWARE OF TRANSFER. BOTH VERBALIZE UNDERSTANDING.
--- NOTE | 2017-03-20 17:09 | NUR ---
PT RESTING IN BED. NO S/S OF ACUTE DISTRESS. PT DENIES PAIN CALL LIGHT WITHIN REACH. SAFETY MEASURES ENSURED. WILL CONTINUE TO MONITOR.
--- NOTE | 2017-03-20 19:21 | NUR ---
ENDORSED PLAN OF CARE TO NIGHT RN. PT REMAINS STABLE.
--- NOTE | 2017-03-20 19:22 | NUR ---
RECEIVED REPORT FROM DAY RN FOR CONTINUITY OF CARE. PATIENT IS RESTING IN BED AT THIS TIME. NO S/S OF DISTRESS OR DISCOMFORT NOTED. SHIFT ASSESSMENT DONE, VS TAKEN, STABLE. PATIENT DENIES PAIN AT THIS TIME. IV PATENT AND INFUSING FLUIDS WELL. DIAZ CATHETER IN PLACE DRAINING TO GRAVITY. BILATERAL LOWER EXTREMITY BRACES IN PLACE. SISTER AT BEDSIDE. SAFETY/CONTACT PRECAUTIONS ENFORCED. CALL LIGHT WITHIN REACH. WILL CONTINUE TO MONITOR.
--- NOTE | 2017-03-20 20:10 | NUR ---
[facility] TO [facility]SPORT PATIENT. REINFORCED DISCHARGE EDUCATION, GATHERED PATIENT BELONGINGS AND SENT WITH SISTER AT BEDSIDE. REMOVED DIAZ CATHETER 200 ML CLEAR YELLOW URINE DRAINING. 10 ML NS RETURNED FROM DIAZ. IV REMOVED, CANNULA INTACT. WRISTBANDS REMOVED. PATIENT IN STABLE CONDITION AND TAKEN VIA GURNEY.
[2017-03-20] MEDS: SIMVASTATIN 10 MG TAB PO SCH (21:00)
[2017-03-20] MEDS: PARoxetine 10 MG TAB PO SCH (21:00)
== END 2017-03-20 20:10 | DRG 562 ==
LOC: MED 00:20 → MTU 04:37
PROVIDERS: ADMIT Family Medicine; ATTEND Family Medicine
PROC: 0QSGXZZ Reposition Right Tibia, External Approach (ICD-10-PCS; 2017-03-16)
PROC: 0QSHXZZ Reposition Left Tibia, External Approach (ICD-10-PCS; 2017-03-16)
PROC: 0QSJXZZ Reposition Right Fibula, External Approach (ICD-10-PCS; 2017-03-16)
PROC: 0QSKXZZ Reposition Left Fibula, External Approach (ICD-10-PCS; principal; 2017-03-16 13:00)
DX: S82.101A Unspecified fracture of upper end of right tibia, initial encounter for closed fracture (principal); N17.0 Acute kidney failure with tubular necrosis; D68.59 Other primary thrombophilia; S82.102A Unspecified fracture of upper end of left tibia, initial encounter for closed fracture; E11.65 Type 2 diabetes mellitus with hyperglycemia; I10 Essential (primary) hypertension; E78.5 Hyperlipidemia, unspecified; K21.9 Gastro-esophageal reflux disease without esophagitis; Z86.73 Personal history of transient ischemic attack (TIA), and cerebral infarction without residual deficits; E11.51 Type 2 diabetes mellitus with diabetic peripheral angiopathy without gangrene; G40.909 Epilepsy, unspecified, not intractable, without status epilepticus; F31.9 Bipolar disorder, unspecified; M21.379 Foot drop, unspecified foot; F19.10 Other psychoactive substance abuse, uncomplicated; M81.0 Age-related osteoporosis without current pathological fracture; W06.XXXA Fall from bed, initial encounter; Y93.89 Activity, other specified; Y92.128 Other place in nursing home as the place of occurrence of the external cause; Y99.8 Other external cause status; S82.832A Other fracture of upper and lower end of left fibula, initial encounter for closed fracture; S82.831A Other fracture of upper and lower end of right fibula, initial encounter for closed fracture
CPT/HCPCS: 36415; 71010; 73560; 73590; 73610; 80048; 80053; 82140; 82150; 82948; 83036; 83690; 83735; 83880; 84100; 84436; 84439; 84443; 84479; 84484; 85025; 85610; 87081; 93005; 96374; 96375; 99285; J1815; J1885; J2250; J2270; J2704; J3010; J7030; Q0092

== ENCOUNTER 2021-10-14 11:06 | Inpatient (IN) | payer OTHER, BC, SELFPAY ==
[~2021-10-14] VITALS: Ht 162.6 cm; Wt 59.0 kg
[~2021-10-14 11:06] MED LIST changes: +ACET-9525 PO; +ASPI-1822 PO; -ASPI81CT89 PO; +POTA20SO16 PO; -[UNRECOGNIZED DRUG - CODE] PO
[2021-10-14 11:25] VITALS: BP 119/61
[2021-10-14] MEDS ORDERED: ACETAMINOPHEN 650 MG SUPP RC ONE ×2 (11:30→12:55)
[2021-10-14] MEDS ORDERED: NACL 0.9% 1,000 ML IV ONE ×2 (12:00→12:50)
[2021-10-14] MEDS ORDERED: PIPERACILLIN/TAZOBACTAM 3.375 GM in DEXTROSE 5% 50 ML IV ONE (12:50)
[2021-10-14] MEDS ORDERED: VANCOMYCIN 1,000 MG in DEXTROSE 5% 250 ML IV ONE (12:50)
[2021-10-14 12:55] LABS: BASOPHILS % (AUTO) 0.2 % (0.0-2.0); HEMATOCRIT 32.3 % (36-48); HEMOGLOBIN 10.5 g/dL (12.0-16.0); LYMPHOCYTES # (AUTO) 1.2 K/uL (2.5-16.5); LYMPHOCYTES % (AUTO) 6.9 % (20.5-51.1); MEAN CORPUSCULAR HEMOGLOBIN 27 pg (27-31); MEAN CORPUSCULAR HGB CONC 33 g/dL (33-37); MEAN CORPUSCULAR VOLUME 82.6 fL (80-94); MONOCYTES # (AUTO) 0.7 K/uL (0.8-1.0); MONOCYTES % (AUTO) 4.3 % (1.7-9.3); NEUTROPHILS # (AUTO) 14.9 K/uL (1.8-7.7); NEUTROPHILS % (AUTO) 88.6 % (42.2-75.2); PLATELET COUNT (AUTO) 277 K/uL (140-450); RED BLOOD CELL COUNT(AUTO) 3.91 MIL/uL (4.20-5.40); WHITE BLOOD COUNT (AUTO) 16.8 K/uL (4.8-10.8)
[2021-10-14 13:24] LABS: ALBUMIN 1.8 g/dL (3.4-5.0); ANION GAP 16.6 (8-16); CARBON DIOXIDE 21.3 mmol/L (21-32); CREATININE 3.6 mg/dL (0.6-1.3); POTASSIUM 4.9 mmol/L (3.5-5.1); TOTAL BILIRUBIN 0.4 mg/dL (0.0-1.0)
--- NOTE | 2021-10-14 14:30 | NUR ---
66 y/o female bibabner from [facility], facility stated to amr that patient has been aloc, last known well time 3pm yesterday. gcs scale, pt responds to pain, incomprehensible sounds, flexion withdrawal from pain, scale at 6. per facility pt is aa&ox4, non ambulatory, pt presents as aa&ox0 and continues to be non ambulatory, strength is stronger on left side. pt has no visible strength in lower extremities. lungs bases wheezing bilaterally, heart sounds even and tachy, edema present generalized. skin is pale/cool/loose. pt incontinent, diapered. pmh: htn, epilepsy, TIA, CVA, DM2, Dementia, GERD, anemia, SEQUELAE OF UNSPECIFIED CEREBROVASCULAR DISEASE, SCHIZOAFFECTIVE DISORDER nka
--- NOTE | 2021-10-14 14:44 | NUR ---
urine collected sent to lab at this time # 16 FR Redman catheter with 10 ml utilizing sterile technique. Immediate return of 90 ml dark yellow, foul smelling, cloudy urine noted. Bedside drainage bag placed below level of bladder. Urine sample collected and sent to lab. Pt tolerated procedure.
[2021-10-14] MEDS ORDERED: VANCOMYCIN 1,000 MG VIAL ONE (14:51)
[2021-10-14] MEDS ORDERED: PIPERACILLIN/TAZOBACTAM 3.375 GM VIAL IV ONE (14:51)
--- NOTE | 2021-10-14 16:03 | NUR ---
pt blue tube was drawn with heavenly swab taken down to lab
[2021-10-14] MEDS ORDERED: guaiFENesin DM 200/20 MG-10 ML 10 ML UDC PO PRN (16:35)
[2021-10-14] MEDS ORDERED: MORPHINE SULFATE 2 MG/ML SYR IVP PRN (16:35)
[2021-10-14] MEDS ORDERED: ACETAMINOPHEN 325 MG TAB PO PRN (16:35)
[2021-10-14] MEDS ORDERED: POTASSIUM CHLORIDE 10 MEQ TABER PO PRN (16:35)
[2021-10-14] MEDS ORDERED: ONDANSETRON 4 MG/2 ML VIAL IM/IVP PRN (16:35)
[2021-10-14] MEDS ORDERED: HYDROcodone/APAP 7.5/325 MG 1 TAB PO PRN (16:35)
[2021-10-14] MEDS ORDERED: DOCUSATE SODIUM 100 MG GELCAP PO PRN (16:35)
[2021-10-14] MEDS ORDERED: fentaNYL citrate 0.05 MG/ML VIAL ONE (16:46)
[2021-10-14] MEDS ORDERED: MIDAZOLAM 2 MG/2 ML VIAL ONE (16:46)
[2021-10-14] MEDS ORDERED: RENAL DOSING PER PHARMACY MC PRN (16:55)
--- NOTE | 2021-10-14 17:00 | NUR ---
pt was taken to ct for nephrostomy tube placement
[2021-10-14] MEDS ORDERED: LIDOCAINE/EPI 1% 1:100000 20 ML VIAL INJ ONE (17:39)
[2021-10-14] MEDS ORDERED: LIDOCAINE 2% 1000 MG/50 ML VIAL INJ ONE (17:40)
[2021-10-14 18:06] LABS: BILIRUBIN,URINE NEGATIVE (NEGATIVE); BLOOD, URINE 3+ (NEGATIVE); COLOR,URINE YELLOW (YELLOW); LEUKOCYTE ESTERASE ,URINE 2+ (NEGATIVE); NITRITE, URINE NEGATIVE (NEGATIVE); PH,URINE 8.5 (5.0-9.0); UGLUCOSE NEGATIVE (NEGATIVE)
[2021-10-14 18:15] LABS: APPEARANCE,URINE CLOUDY (CLEAR)
[2021-10-14 18:18] LABS: BARBITURATE, URINE NEGATIVE ng/ml (NEG <=200); BENZODIAZEPINE, URINE NEGATIVE ng/mL (NEG <=200); CANNABINOID, URINE NEGATIVE ng/mL (NEG <=50); COCAINE, URINE NEGATIVE ng/mL (NEG <=300); OPIATE, URINE NEGATIVE ng/mL (NEG <=2000); PHENCYCLIDINE SCREEN,URINE NEGATIVE ng/mL (NEG <=25)
[2021-10-14 18:45] LABS: RBC,URINE 20-50 /HPF (0-5); WBC,URINE TOO MANY TO COUNT /HPF (0-5)
[2021-10-14 19:27] LABS: CHOL/HDL RATIO 6.1 (1-4.5); FREE T4 (FREE THYROXINE) 1.14 ng/dL (0.76-1.46); PHOSPHORUS 2.8 mg/dL (2.5-4.9); THYROID STIMULATING HORMONE 0.84 uIU/mL (0.34-3.74)
[2021-10-14 19:36] LABS: MAGNESIUM 0.7 mg/dL (1.8-2.4)
--- NOTE | 2021-10-14 20:15 | NUR ---
Recived patient post-op from CT status post nephrostomy tube placement bu Dr. Bon Medrano. Per RN bilateral nephrostomy tubes were unable to be placed. Patient currently has R nephrostomy tube in place at this time. Patient o2sat @ 89% on RA. Patient placed on 3L NC. Patient respirations are even and unlabored. Patient skin is cold and dry to touch. Patient repositioned in bed, diaper changed, skin left clean dry. Skin intact. Rectal temp WNL. Patient has FC in place at this time. Patient placed on cafeteria monitor. Bed is locked and in lowest positioned.
[2021-10-14] MEDS: PARoxetine 10 MG TAB PO SCH (21:00)
[2021-10-14] MEDS ORDERED: PIPERACILLIN/TAZOBACTAM 3.375 GM in DEXTROSE 5% 50 ML IV SCH (21:00)
[2021-10-14] MEDS: PIPERACILLIN/TAZOBACTAM 2.25 GM in DEXTROSE 5% 50 ML IV SCH (21:00)
--- NOTE | 2021-10-14 22:13 | NUR ---
Patient repositioned in bed for comfort measures. Diaper dry, oral care done for comfort measures. Patient pain 0/10 per Flacc. Patient remains on telemetry monitor, VSS.
[2021-10-14] MEDS: carvediloL 6.25 MG TAB PO SCH (22:30)
[2021-10-14] MEDS: SIMVASTATIN 10 MG TAB PO SCH (23:00)
--- NOTE | 2021-10-15 00:56 | NUR ---
Patient appears to be resting comfortably in bed with eyes closed, respirations are even and unlabored. Patient responsive to verbal stimuli. Vital Signs within normal limits on cardiac nurse practitioner.
[2021-10-15] MEDS ORDERED: PIPERACILLIN/TAZOBACTAM 2.25 GM VIAL IV ONE ×2 (01:22→06:12)
--- NOTE | 2021-10-15 04:12 | NUR ---
Patient appears to be resting comfortably in bed. Vital Signs within normal limits. Respirations even and unlabored.
[2021-10-15] MEDS: PIPERACILLIN/TAZOBACTAM 2.25 GM in DEXTROSE 5% 50 ML IV SCH ×3 (05:30→21:25)
[2021-10-15 06:07] LABS: T4 (THYROXINE) 5.8 ug/dL (4.5-12.0)
--- NOTE | 2021-10-15 06:43 | NUR ---
Patient appears to be resting comfortably in bed. Vital Signs within normal limits on property assessment monitor. Respirations even and unlabored. 200ml emptied from FC of bright red, cloudy urine. 580ml of bright red liquid emptied from nephrostomy tube. rectal temp 98.3. Patient able to tolerate RA and o2sat @ 98%. Patient accucheck WNL.
--- NOTE | 2021-10-15 06:55 | NUR ---
TEXTED DR STAUFFER FOR POSSIBLE DOWNGRADE TO TELE
--- NOTE | 2021-10-15 07:45 | NUR ---
RECEIVED PATIENT FROM FINE GRADE OPERATOR NURSE FOR CONTINUITY OF CARE. PATIENT IS AWAKE, ALERT, ABLE TO FOLLOW COMMAND, APHASIC. RESPIRATORY EVEN AND UNLABORED, TRACH TO VENT, VT 450, PEEP 5, FIO2 48%, O2 SAT 99%. NO SIGN OF DISTRESS NOTED. SKIN WARM, DRY, NON DIAPHORETIC. IV ON RIGHT FEMORAL DOUBLE LUMENS, INTACT AND PATENT, IS INFUSING FLUID ORDER. DIAZ IN PLACE, CLEAR YELLOW URINE. G-TUBE IN PLACE, IS RUNNING WITH GLUCERNA 1.2@50ML/HR, WATER FLUSH 150 Q4H. PATIENT TOLERATED WELL. PLAN OF CARE DISCUSSED. PRECAUTION IN PLACE. CALL LIGHT WITHIN REACH. WILL CONTINUE TO MONITOR. Addendum: 10/15/21 at 1040 by Hector Aguilar RN RN WRONG PATIENT.
--- NOTE | 2021-10-15 07:45 | NUR ---
Patient will be admitted to care of Jory STAUFFER Admited to TELE. Will go to room 104B. Belongings list completed. Report to MONSERRAT.
--- NOTE | 2021-10-15 08:10 | NUR ---
RECEIVED PHONE REPORT FROM ER NURSE.
[2021-10-15 08:59] VITALS: BP 103/56
[2021-10-15] MEDS: PANTOPRAZOLE 40 MG TABEC PO SCH (09:00)
[2021-10-15] MEDS: amLODIPine 5 MG TAB PO SCH (09:00)
--- NOTE | 2021-10-15 09:00 | NUR ---
RECEIVED PATIENT FROM ER. CC ALOC. DX SEVERE SEPSIS, PYELONEPHRITIS, RENAL FAILURE. PATIENT IS ON TELE MONITOR. AWAKE TO VOICE, MUMBLING, UNABLE TO VERBALIZE NAME, PLACE, . UNABLE TO FOLLOW COMMANDS. RESPIRATORY EVEN AND UNLABORED, ON ROOM AIR, LUNG SOUND CLEAR TO AUSCULTATE. ABDOMEN ROUNDED, SOFT. BOWEL SOUND ACTIVE TO ALL QUADRANTS. SKIN WARM, DRY, NON DIAPHORETIC. IV ON RIGHT FA 18G, INTACT AND PATENT, SALINE LOCK. IV ON LEFT AC 20G, INTACT AND PATENT, SALINE LOCK. DIAZ CATHETER IN PLACE, BRIGHT RED URINE NOTED. RIGHT NEPHROSTOMY BAG NOTED, WITH CLEAR RED URINE. PLAN OF CARE DISCUSSED. MRSA COLLECTED. ORIENTED TO ROOM AND UNIT ROUTINE. PRECAUTION IN PLACE. CALL LIGHT WITHIN REACH. WILL CONTINUE TO MONITOR.
[2021-10-15] MEDS: carvediloL 6.25 MG TAB PO SCH ×2 (09:08→16:34)
--- NOTE | 2021-10-15 09:08 | NUR ---
PATIENT REFUSED TO TAKE PO MEDICATIONS, EDUCATION GIVEN. WILL CONTINUE TO MONITOR.
[2021-10-15 09:09] VITALS: BP 97/49
--- NOTE | 2021-10-15 09:21 | NUR ---
PATIENT HAS BEEN SCREENED AND CATEGORIZED MODERATE NUTRITION RISK. PATIENT WILL BE SEEN WITHIN 3-5 DAYS OF ADMISSION. 10/17/2021-10/19/[address] Addendum: 10/15/21 at [address] ADDENDUM: PATIENT HAS BEEN RESCREENED AND RE-CATEGORIZED HIGH NUTRITION RISK. PATIENT WILL BE SEEN WITHIN 1-2 DAYS OF ADMISSION. 10/15/2020-10/16/2020 [facility] REFERRAL RECEIVED FOR REFUSAL TO EAT >[address]
--- NOTE | 2021-10-15 09:52 | NUR ---
RECEIVED CALL FROM PATIENT'S SISTER, SELENA, ALL INFORMATION UPDATED.
[2021-10-15 12:00] VITALS: BP 109/53
--- NOTE | 2021-10-15 12:44 | NUR ---
NOTIFIED DR STAUFFER THAT PT REFUSED ALL THE PO MEDICATIONS, PT DOES NOT OPEN HER MOUTH. DR AVIELS.
--- NOTE | 2021-10-15 13:26 | NUR ---
FAMILY AT BEDSIDE.
[2021-10-15] MEDS ORDERED: MIDAZOLAM 5 MG/5 ML VIAL ONE (13:35)
[2021-10-15] MEDS ORDERED: fentaNYL citrate 0.05 MG/ML VIAL ONE (13:35)
[2021-10-15] MEDS ORDERED: diphenhydrAMINE 50 MG/ML VIAL ONE (13:35)
[2021-10-15] MEDS: levETIRAcetam 500 MG TAB PO SCH ×2 (13:44→21:00)
[2021-10-15] MEDS ORDERED: LIDOCAINE 2% 1000 MG/50 ML VIAL INJ ONE (14:27)
[2021-10-15 14:28] LABS: BASOPHILS % (AUTO) 0.2 % (0.0-2.0); EOSINOPHILS # (AUTO) 0.2 K/uL (0-0.4); EOSINOPHILS % (AUTO) 0.9 % (0.0-4.0); HEMATOCRIT 31.6 % (36-48); HEMOGLOBIN 9.8 g/dL (12.0-16.0); LYMPHOCYTES # (AUTO) 0.8 K/uL (2.5-16.5); MEAN CORPUSCULAR HEMOGLOBIN 27 pg (27-31); MEAN CORPUSCULAR HGB CONC 31 g/dL (33-37); MEAN CORPUSCULAR VOLUME 85.3 fL (80-94); MONOCYTES # (AUTO) 0.6 K/uL (0.8-1.0); NEUTROPHILS % (AUTO) 91.9 % (42.2-75.2); PLATELET COUNT (AUTO) 177 K/uL (140-450); RED BLOOD CELL COUNT(AUTO) 3.71 MIL/uL (4.20-5.40); RED CELL DISTRIBUTION WIDTH 15.2 % (11.6-13.7); WHITE BLOOD COUNT (AUTO) 20.7 K/uL (4.8-10.8)
[2021-10-15] MEDS ORDERED: LIDOCAINE/EPI MPF 1%1:200000 30 ML VIAL INJ ONE (14:29)
[2021-10-15 15:04] LABS: ANION GAP 21.2 (8-16); CARBON DIOXIDE 17.2 mmol/L (21-32); POTASSIUM 4.4 mmol/L (3.5-5.1)
[2021-10-15 15:22] VITALS: BP 92/48
--- NOTE | 2021-10-15 15:22 | NUR ---
PT RETURN FROM OR ROOM. BP 92/48, HR 88. WILL NOTIFY DR STAUFFER. Addendum: 10/15/21 at 1858 by Hector Aguilar RN RN PER OR NURSE, WILL CHANGE TO NEPHROSTOMY BAG WHEN PUS CLEAR ON LEFT SIDE. WILL CONTINUE TO MONITOR.
--- NOTE | 2021-10-15 15:39 | NUR ---
10/15/21 RD INITIAL ASSESSMENT COMPLETED PLEASE REFER TO NUTRITION ASSESSMENT UNDER CARE ACTIVITY FOR ESTIMATED NUTRITIONAL NEEDS. RD RECOMMENDATIONS: 1. CONSIDER ORDERING A SWALLOW EVALUATION 2. IF PT IS SAFE FOR ORAL INTAKE, CONSIDER CCHO 60 GM LOW NA WITH TEXTURE MODIFICATION PER ATHLETIC COORDINATOR/MD 3. IF PT WILL NEED NUTRITION SUPPORT, PLEASE CONSULT RD 4. RD TOBY F/U 2-3 DAYS; HIGH RISK ARBEN LEW RD
[2021-10-15 16:00] VITALS: BP 113/46
[2021-10-15] MEDS ORDERED: NACL 0.9% 1,000 ML IV ONE (16:55)
--- NOTE | 2021-10-15 17:20 | NUR ---
PATIENT IS AWAKE, EYE OPEN SPONTANEOUS. NO SIGN OF DISTRESS NOTED. PRECAUTION IN PLACE. CALL LIGHT WITHIN REACH. WILL CONTINUE TO MONITOR.
--- NOTE | 2021-10-15 19:10 | NUR ---
ENDORSED PATIENT TO UI DEVELOPER WITH ANGULAR JS NURSE FOR CONTINUITY OF CARE. PATIENT IS STABLE.
--- NOTE | 2021-10-15 19:30 | NUR ---
RECEIVED REPORT AT BEDSIDE FROM RN DAYSHIFT NURSE FOR CONTINUITY OF CARE, PT LYING IN BED HOB UP 45%,SHE IS AOX1, EYES OPEN SPONTANEOUSLY AND SHE CAN TRACK WITH HER EYES. PT SPEECH IS DELAYED AND DIFFICULT TO UNDERSTAND. SHE IS ON ROOM AIR AND HAS 2 IV SITES A 18G ON THE RIGHT F/A AND A 20G ON LEFT AC. PT IS NPO AND SALINE LOCKED AT THIS TIME. SHE HAS 2 NEPHROSTOMY TUBES PLACED THE RIGHT TUBE IS DRAINING BLOOD TINGED URINE AND THE LEFT TUBE HAS A COLLAPSABLE NEPHRO TUBE DRAINING THICK YELLOW/TANNISH PUSS. ALL FALLS AND UNIVERSAL PRECAUTIONS IN PLACE.
[2021-10-15 20:00] VITALS: BP 112/50
--- NOTE | 2021-10-15 20:30 | NUR ---
PT IN BED V/S FOLLOWS: T 97.9 P 83 R 18 B/P 112/50 02 100% ON ROOM AIR.
[2021-10-15] MEDS: PARoxetine 10 MG TAB PO SCH (21:00)
[2021-10-15] MEDS: SIMVASTATIN 10 MG TAB PO SCH (21:00)
--- NOTE | 2021-10-15 21:15 | NUR ---
PT GIVEN ORDERED ZOSYN. SEIZURE PRECAUTIONS PLACED ON PT BED. PO MEDS HELD AT THIS TIME. (KEPPRA, PAXIL AND ZOCOR). PT REMAINS NPO AT THIS TIME. EDUCATION GIVEN REGARDING IV ANT ZOSYN, PT DID NOT VERBALIZED UNDERSTANDING. EVEN WITH REINFORCEMENT GIVEN. PT NEPRO BAG ON RIGHT SIDE CONTINUES TO DRAIN BLOOD TINGED URINE FORM RIGHT NEPHROSTOMY TUBE WELL FROM DIAZ CATHETER.
--- NOTE | 2021-10-15 23:00 | NUR ---
SPOKE WITH SISTER, SHE SAID THAT PT DID NOT HAVE A HISTORY OF SEIZURES. SISTER ALSO SAID THAT PT WAS HAVING SOME DIFFICULTY SWALLOWING. WILL ENDORSE TO AM SHIFT, SO THEY CAN REACH TO DOCTOR TO ORDER A SWALLOW EXAM.
[2021-10-16] VITALS: BP 114/56
--- NOTE | 2021-10-16 | NUR ---
PT REFUSE TO TURN IN BED SHE WAS COMPLAINING OF PAIN , BUT DECLINED PAIN MEDICATION AT THIS TIME. V/S FOLLOWS: T 98.3 P 81 R 17 B/P 1114/56 02 100%. ALL ORDERED PRECAUTIONS IN PLACE.
--- NOTE | 2021-10-16 02:00 | NUR ---
PT RESTLESS WITH C/O OF SEVERE PAIN IN BACK SHE WAS GIVEN IVP MORPHINE 1MG ORDERED. WILL MONITOR FOR EFFECT.
[2021-10-16 04:00] VITALS: BP 118/52
[2021-10-16] MEDS: PIPERACILLIN/TAZOBACTAM 2.25 GM in DEXTROSE 5% 50 ML IV SCH ×3 (05:00→20:51)
--- NOTE | 2021-10-16 07:30 | NUR ---
RECEIVED REPORT FROM DIRECTOR DATA PROCESSING NURSE FOR CONTINUITY OF CARE, POC DISCUSSED. PT SHOWS NO S/S OF DISTRESS ON ROOM AIR. ALL SAFETY MEASURES IN PLACE, CALL LIGHT WITHIN REACH WILL CONTINUE TO MONITOR.
[2021-10-16 07:44] LABS: ANION GAP 17.6 (8-16); CARBON DIOXIDE 18.7 mmol/L (21-32); CREATININE 2.3 mg/dL (0.6-1.3); POTASSIUM 3.3 mmol/L (3.5-5.1)
[2021-10-16 07:46] LABS: BASOPHILS % (AUTO) 0.2 % (0.0-2.0); EOSINOPHILS % (AUTO) 0.1 % (0.0-4.0); HEMATOCRIT 29.4 % (36-48); HEMOGLOBIN 9.5 g/dL (12.0-16.0); LYMPHOCYTES # (AUTO) 0.6 K/uL (2.5-16.5); LYMPHOCYTES % (AUTO) 4.3 % (20.5-51.1); MEAN CORPUSCULAR HEMOGLOBIN 27 pg (27-31); MEAN CORPUSCULAR HGB CONC 32 g/dL (33-37); MEAN CORPUSCULAR VOLUME 83.8 fL (80-94); MONOCYTES # (AUTO) 0.5 K/uL (0.8-1.0); MONOCYTES % (AUTO) 3.5 % (1.7-9.3); NEUTROPHILS # (AUTO) 13.4 K/uL (1.8-7.7); NEUTROPHILS % (AUTO) 91.9 % (42.2-75.2); PLATELET COUNT (AUTO) 180 K/uL (140-450); RED BLOOD CELL COUNT(AUTO) 3.51 MIL/uL (4.20-5.40); RED CELL DISTRIBUTION WIDTH 15.2 % (11.6-13.7); WHITE BLOOD COUNT (AUTO) 14.6 K/uL (4.8-10.8)
[2021-10-16 08:00] VITALS: BP 109/68
[2021-10-16] MEDS: carvediloL 6.25 MG TAB PO SCH ×2 (08:00→16:14)
[2021-10-16] MEDS: levETIRAcetam 500 MG TAB PO SCH ×2 (08:36→21:18)
[2021-10-16] MEDS: amLODIPine 5 MG TAB PO SCH (08:36)
[2021-10-16] MEDS: PANTOPRAZOLE 40 MG TABEC PO SCH (08:37)
--- NOTE | 2021-10-16 09:24 | NUR ---
PT REFUSED TO OPEN MOUTH FOR MEDICATION.
[2021-10-16 12:00] VITALS: BP 147/67
--- NOTE | 2021-10-16 12:54 | NUR ---
PT REMOVED 2 IVS, 3RD IV PLACED IN RIGHT FOREARM 24G. SALINE FLUSH.
[2021-10-16 16:00] VITALS: BP 143/77
[2021-10-16] MEDS ORDERED: POTASSIUM CHLORIDE 10 MEQ TABER PO SCH (16:00)
--- NOTE | 2021-10-16 16:00 | NUR ---
KINGA MEDICATION ADMINISTERED PER MD ORDER. PT IS STABLE, DOWNGRADE TO [employer].
[2021-10-16] MEDS: SODIUM BICARBONATE 8.4% 50 MEQ in NACL 0.45% 1,000 ML IV SCH (16:14)
--- NOTE | 2021-10-16 18:36 | NUR ---
LEFT NEPHROSTOMY TUBE STILL DRAINING PUS. ALL NEEDS HAVE BEEN MET THROUGHOUT SHIFT. ALL SAFETY MEASURES IN PLACE. PT WILL BE ENDORSED TO ELECTRICAL LABORATORY TECHNICIAN NURSE.
--- NOTE | 2021-10-16 19:10 | NUR ---
RECEIVED REPORT FROM AM SHIFT NURSE FOR CONTINUITY OF CARE, PATIENT IN BED RESTING COMFORTABLY. NOT IN DISTRESS. ON ROOM AIR. ALL SAFETY MEASURES IN PLACE,. CALL LIGHT WITHIN REACH. WILL CONTINUE WITH CURRENT PLAN OF CARE.
[2021-10-16 20:00] VITALS: BP 137/68
--- NOTE | 2021-10-16 21:00 | NUR ---
Patient's Plan of Care was discussed and reviewed with ELECTRIC TRACK SWITCH MAINTAINER: YIMI BONILLA
[2021-10-16] MEDS: PARoxetine 10 MG TAB PO SCH (21:19)
[2021-10-16] MEDS: SIMVASTATIN 10 MG TAB PO SCH (21:20)
--- NOTE | 2021-10-16 21:20 | NUR ---
ALL DUE MEDICATIONS GIVEN PER MD ORDER. TOLERATED WELL. NO ASE NOTED. CALL LIGHT WITHIN REACH. WILL CONTINUE TO MONITOR.
--- NOTE | 2021-10-17 01:41 | NUR ---
CHECKED ON PATIENT. PATIENT ASLEEP. BREATHING EVEN AND UNLABORED. ALL SAFETY MEASURES IN PLACE. CALL LIGHT WITHIN REACH. WILL CONTINUE TO MONITOR.
[2021-10-17] MEDS: ZOLPIDEM 5 MG TAB PO PRN ×2 (02:30→22:54)
[2021-10-17 04:00] VITALS: BP 139/67
--- NOTE | 2021-10-17 04:01 | NUR ---
CHECKED ON PATIENT. SLEEPING WELL WITH VISIBLE CHEST RISING AND FALLING. ALL SAFETY MEASURES IN PLACE. CALL LIGHT WITHIN REACH. WILL CONTINUE TO MONITOR.
[2021-10-17] MEDS: PIPERACILLIN/TAZOBACTAM 2.25 GM in DEXTROSE 5% 50 ML IV SCH ×3 (04:18→22:04)
[2021-10-17] MEDS: SODIUM BICARBONATE 8.4% 50 MEQ in NACL 0.45% 1,000 ML IV SCH ×2 (04:38→17:57)
--- NOTE | 2021-10-17 07:15 | NUR ---
ENDORSED PATIENT REPORT TO AM SHIFT NURSE FOR CONTINUITY OF CARE. PATIENT IS STABLE.
--- NOTE | 2021-10-17 07:16 | NUR ---
RECEIVED REPORT FROM DIVING SUPERVISOR NURSE FOR CONTINUITY OF CARE. PT IS IN BED SLEEPING AT THIS TIME. RESPIRATIONS ARE EVEN AND UNLABORED. NO SIGNS OF DISTRESS NOTED. NO COMPLAINTS OF PAIN OR DISCOMFORT NOTED. CALL LIGHT WITHIN REACH. ALL SAFETY MEASURES IN PLACE. WILL CONTINUE TO MONITOR.
--- NOTE | 2021-10-17 07:32 | NUR ---
PT FOUND PULLING AT NEPHROSTOMY TUBES. REORIENTED PT. PT THEN ATTEMPTED TO PULL IV LINES. REORIENTED PT. WILL CONTINUE TO MONITOR.
[2021-10-17 08:00] VITALS: BP 131/62
--- NOTE | 2021-10-17 08:00 | NUR ---
Patient's Plan of Care was discussed and reviewed with SOCIAL SERVICES DIRECTOR: BASSEM WILLIS
[2021-10-17] MEDS: levETIRAcetam 500 MG TAB PO SCH ×2 (08:37→22:04)
[2021-10-17] MEDS: ASPIRIN 81 MG TAB.CHEW PO SCH (08:38)
[2021-10-17] MEDS: BACLOFEN 10 MG TAB PO SCH (08:38)
[2021-10-17] MEDS: carvediloL 6.25 MG TAB PO SCH ×2 (08:38→17:00)
[2021-10-17] MEDS: PANTOPRAZOLE 40 MG TABEC PO SCH (08:39)
[2021-10-17] MEDS: amLODIPine 5 MG TAB PO SCH (08:39)
--- NOTE | 2021-10-17 08:40 | NUR ---
ADMINISTERED ALL SCHEDULED MEDICATIONS. EDUCATED PT REGARDING MEDS ADMINISTERED. PT VERBALIZED "OK". PT TOLERATED WELL. CALL LIGHT WITHIN REACH. ALL SAFETY MEASURES IN PLACE. WILL CONTINUE TO MONITOR.
[2021-10-17] MEDS ORDERED: metFORMIN 500 MG TAB PO SCH (09:00)
--- NOTE | 2021-10-17 10:12 | NUR ---
WITNESSED PT PULLING AT NEPHROSTOMY TUBES. REORIENTED PT AGAIN. PT STATED "OK". WILL CONTINUE TO MONITOR.
--- NOTE | 2021-10-17 11:00 | NUR ---
DC PLANNING: JARRET FAXED PATIENT'S INFORMATION AND CLINICALS TO [facility] AT WITH COMPLETE CONFIRMATION AT ABOUT 11:00. JARRET WILL FOLLOW UP NEEDED. Addendum: 10/17/21 at 1526 by Raquel Doss SS JARRET CALL [facility] AT SPOKE TO SERENITY TO FOLLOW UP WITH CLINICALS SEND EARLIER TODAY VIA FAX. PER SERENITY SHE WILL CHECK ON CLINICALS AND HER BEDS STATUS AND WILL CALL BACK JARRET WITH AN UPDATE.
--- NOTE | 2021-10-17 11:24 | NUR ---
PT. WITH LOW LAURA SCALE AT HIGH RISK, CONTINUE TO FOLLOW PRESSURE INJURY PREVENTION INTERVENTIONS. -TURN AND REPOSITION PATIENT Q 2H -INSPECT SKIN UNDER AND AROUND MEDICAL DEVICES. -ASSESS AND MONITOR SKIN CONDITION DURING POSITION CHANGE -OFFLOAD BILATERAL HEELS BY PLACING PILLOWS UNDER CALVES AT ALL TIMES, UNLESS OTHERWISE CONTRAINDICATED -APPLY HEEL PROTECTORS -PRESSURE REDISTRIBUTION SURFACE AND OFFLOADING SACRALCOCCYX -MANAGE MOISTURE, FRICTION AND SHEAR BY KEEP SKIN CLEAN AND DRY. -MANAGE FRICTION AND SHEAR BY USING LIFT SHEET TO REPOSITION PATIENT -HOB 30 DEGREE TOLERATE -PLEASE FOLLOW RD RECOMMENDATIONS PLEASE NOTIFIED WOUND CARE NURSE FOR ANY CHANGE OF SKIN CONDITION
--- NOTE | 2021-10-17 13:18 | NUR ---
STAFF WITNESSED PT PULLING AT IV LINES AND TAKING OFF HER CLOTHES. WENT IN AND ASSISTED IN CHANGING PT. REORIENTED PT. EDUCATED PT REGARDING NEED FOR IV LINES. PT VERBALIZED "OK". WILL CONTINUE TO MONITOR.
--- NOTE | 2021-10-17 14:11 | NUR ---
Discharge Planning: SOFTWARE TESTER spoke with Makenzie in Admissions at [facility] ([phone]) Makenzie states that they have a COVID Surge and cannot accept pt back today. Makenzie will call with update later today or tomorrow if they are able to accept pt back.
--- NOTE | 2021-10-17 14:56 | NUR ---
PT COMPLAINING OF PAIN. WHEN ASSESSING PT, PT VERBALIZED "IT HURTS BAD". MEDICATED PT. WILL CONTINUE TO MONITOR.
[2021-10-17 16:00] VITALS: BP 112/67
--- NOTE | 2021-10-17 17:05 | NUR ---
LAB CALLED TO REPORT PT WOUND CULTURES CAME BACK POSITIVE FOR PROTEUS MIRABILIS ESBL. MADE AWARE.
--- NOTE | 2021-10-17 19:31 | NUR ---
ENDORSED PT TO SENIOR SHIPPING CLERK NURSE FOR CONTINUITY OF CARE. PT IS STABLE.
[2021-10-17] MEDS: SIMVASTATIN 10 MG TAB PO SCH (21:00)
[2021-10-17] MEDS: PARoxetine 10 MG TAB PO SCH (22:05)
[2021-10-18 00:16] LABS: CARBON DIOXIDE 20.4 mmol/L (21-32); CREATININE 1.5 mg/dL (0.6-1.3); POTASSIUM 3.4 mmol/L (3.5-5.1)
[2021-10-18] MEDS: PIPERACILLIN/TAZOBACTAM 2.25 GM in DEXTROSE 5% 50 ML IV SCH ×2 (05:00→12:51)
[2021-10-18 05:40] VITALS: BP 115/70
[2021-10-18 06:55] LABS: BASOPHILS % (AUTO) 0.2 % (0.0-2.0); EOSINOPHILS % (AUTO) 0.5 % (0.0-4.0); HEMATOCRIT 26.5 % (36-48); HEMOGLOBIN 8.8 g/dL (12.0-16.0); LYMPHOCYTES # (AUTO) 0.8 K/uL (2.5-16.5); LYMPHOCYTES % (AUTO) 8.8 % (20.5-51.1); MEAN CORPUSCULAR HEMOGLOBIN 27 pg (27-31); MEAN CORPUSCULAR HGB CONC 33 g/dL (33-37); MEAN CORPUSCULAR VOLUME 81.2 fL (80-94); MONOCYTES # (AUTO) 0.4 K/uL (0.8-1.0); NEUTROPHILS # (AUTO) 7.5 K/uL (1.8-7.7); NEUTROPHILS % (AUTO) 85.5 % (42.2-75.2); PLATELET COUNT (AUTO) 153 K/uL (140-450); RED BLOOD CELL COUNT(AUTO) 3.27 MIL/uL (4.20-5.40); RED CELL DISTRIBUTION WIDTH 15.4 % (11.6-13.7); WHITE BLOOD COUNT (AUTO) 8.8 K/uL (4.8-10.8)
--- NOTE | 2021-10-18 07:00 | NUR ---
Patient's Plan of Care was discussed and reviewed with WINCH DERRICK OPERATOR: BASSEM WILLIS
[2021-10-18 07:02] LABS: ANION GAP 12.6 (8-16); CARBON DIOXIDE 23.6 mmol/L (21-32); CREATININE 1.1 mg/dL (0.6-1.3); POTASSIUM 3.2 mmol/L (3.5-5.1)
[2021-10-18] MEDS: SODIUM BICARBONATE 8.4% 50 MEQ in NACL 0.45% 1,000 ML IV SCH (07:08)
--- NOTE | 2021-10-18 07:15 | NUR ---
RECEIVED REPORT FROM MEDICAL COORDINATOR PESTICIDE USE NURSE FOR CONTINUITY OF CARE.PT IN BED AT THIS TIME. RESPIRATIONS ARE EVEN AND UNLABORED. NO SIGNS OF DISTRESS NOTED. CALL LIGHT WITHIN REACH. ALL SAFETY MEASURES IN PLACE. WILL CONTINUE TO MONITOR.
[2021-10-18 08:00] VITALS: BP 141/73
[2021-10-18] MEDS: carvediloL 6.25 MG TAB PO SCH ×2 (08:45→17:22)
[2021-10-18] MEDS: ASPIRIN 81 MG TAB.CHEW PO SCH (08:45)
[2021-10-18] MEDS: levETIRAcetam 500 MG TAB PO SCH (08:45)
[2021-10-18] MEDS: amLODIPine 5 MG TAB PO SCH (08:46)
[2021-10-18] MEDS: BACLOFEN 10 MG TAB PO SCH (08:46)
[2021-10-18] MEDS: PANTOPRAZOLE 40 MG TABEC PO SCH (08:46)
--- NOTE | 2021-10-18 08:46 | NUR ---
ADMINISTERED ALL SCHEDULED MEDICATIONS. EDUCATED PT REGARDING MEDS ADMINISTERED. PT STATED "OK". PT TOLERATED WELL. CALL LIGHT WITHIN REACH. ALL SAFETY MEASURES IN PLACE. WILL CONTINUE TO MONITOR.
[2021-10-18] MEDS ORDERED: PIPE1SOL IV (10:34)
--- NOTE | 2021-10-18 11:42 | NUR ---
DISCHARGE PLANNING Called and spoke with Makenzie at [facility] to f/u if able to take pt back today. States will find out & call me back later with update if taking pt's back. Informed Makenzie, new order for IV Zosyn, & faxed order. Addendum: 10/18/21 at 1524 by Jessica Dhillon CM Called & spoke with Makenzie at [facility], pt accepted back, going to room 222C, would like pt picked up 5pm or after. Report ph [phone] Station [address] Enriquez. Called [facility] for transportation, ph [phone], was on hold for over 20min no answer. Called & spoke with Kenroy at [facility] [employer], [phone], set up [employer] order picker for 545pm, aware of isolation for ESBL. Ref # [id number], states no direct ph# for them but can also use ph [phone]. Called & informed pt's sister Jaylyn Clement, ph [phone], & agreeable with dc back to [facility] today.
--- NOTE | 2021-10-18 12:51 | NUR ---
RN ADMINISTERED IV MEDICATION. WILL CONTINUE TO MONITOR.
--- NOTE | 2021-10-18 15:12 | NUR ---
10/18/21 RD FOLLOW UP COMPLETED PLEASE REFER TO NUTRITION ASSESSMENT UNDER CARE ACTIVITY FOR ESTIMATED NUTRITIONAL NEEDS. 1. CONTINUE REGULAR MECHANICAL SOFT DIET TOLERATED 2. RD TOBY F/U 3-5 DAYS; MODERATE RISK (DOWNGRADED D/T PT CLINICALLY STABLE) KAREL ST[address] RD
--- NOTE | 2021-10-18 15:20 | NUR ---
PT HAS DISCHARGE ORDER IN PLACE. PT WILL DISCHARGE BACK TO [facility]. SET UP TRANSPORTATION, PT TO BE PICKED UP AT 1745.
--- NOTE | 2021-10-18 15:55 | NUR ---
CALLED [facility] TO GIVE REPORT ON PT. SPOKE WITH KAUSHAL. INFORMED NURSE THAT PT WILL CONTINUE IV ANTIBIOTICS. IV WILL BE LEFT IN PLACE. ALSO INFORMED NURSE THAT PER MD, KEEP DIAZ CATHETER IN PLACE. ANSWERED ALL QUESTIONS.
--- NOTE | 2021-10-18 18:18 | NUR ---
PT PICKED UP BY TRANSPORTATION. REMOVED WRIST BAND. IV LEFT IN PLACE DUE TO PT CONTINUE WITH IV ANTIBIOTICS. DIAZ CATHETER IN PLACE PER MD ORDER, AND BILATERAL NEPHROSTOMY TUBES IN PLACE. ALL EQUIPMENT PATENT AND INTACT. ALL BELONGINGS TAKEN WITH PT UPON DISCHARGE.
== END 2021-10-18 18:20 | DRG 871 ==
LOC: MED 11:06 → MTU 15:27
PROVIDERS: ADMIT Family Medicine; ATTEND Family Medicine
PROC: 0T9330Z Drainage of Right Kidney Pelvis with Drainage Device, Percutaneous Approach (ICD-10-PCS; principal; 2021-10-15)
PROC: 0T9430Z Drainage of Left Kidney Pelvis with Drainage Device, Percutaneous Approach (ICD-10-PCS; 2021-10-15)
DX: A41.9 Sepsis, unspecified organism (principal); N17.0 Acute kidney failure with tubular necrosis; E43 Unspecified severe protein-calorie malnutrition; N13.6 Pyonephrosis; G93.40 Encephalopathy, unspecified; G40.909 Epilepsy, unspecified, not intractable, without status epilepticus; R65.20 Severe sepsis without septic shock; J32.9 Chronic sinusitis, unspecified; I12.9 Hypertensive chronic kidney disease with stage 1 through stage 4 chronic kidney disease, or unspecified chronic kidney disease; E11.22 Type 2 diabetes mellitus with diabetic chronic kidney disease; N18.30 Chronic kidney disease, stage 3 unspecified; D63.8 Anemia in other chronic diseases classified elsewhere; K21.9 Gastro-esophageal reflux disease without esophagitis; Z20.822 Contact with and (suspected) exposure to COVID-19; K57.90 Diverticulosis of intestine, part unspecified, without perforation or abscess without bleeding; E87.6 Hypokalemia; E83.42 Hypomagnesemia; E86.0 Dehydration; Z90.710 Acquired absence of both cervix and uterus; Z86.73 Personal history of transient ischemic attack (TIA), and cerebral infarction without residual deficits; Z98.84 Bariatric surgery status; Z79.899 Other long term (current) drug therapy; Z79.82 Long term (current) use of aspirin; Z83.3 Family history of diabetes mellitus; Z82.0 Family history of epilepsy and other diseases of the nervous system; Z84.89 Family history of other specified conditions; Z68.22 Body mass index [BMI] 22.0-22.9, adult
CPT/HCPCS: 36415; 50432; 70450; 71045; 75989; 76942; 80048; 80053; 80305; 81001; 82140; 82150; 83036; 83605; 83690; 83735; 83880; 84100; 84436; 84439; 84443; 84479; 84484; 85025; 85610; 85730; 87040; 87070; 87075; 87081; 87086; 96361; 96365; 96366; 96367; 97110; 97112; 97163-GP; 97530; 99291; 99292; C1729; J1200; J2001; J2250; J2270; J2543; J3010; J3370; J3490; J7060; Q0092

== ENCOUNTER 2021-10-25 12:48 | Emergency (ER) | payer OTHER, BC ==
[~2021-10-25] VITALS: Ht 157.5 cm; Wt 57.6 kg
[~2021-10-25 12:48] MED LIST changes: +PIPE1SOL IV
--- NOTE | 2021-10-25 12:52 | NUR ---
[facility]
[2021-10-25 12:54] VITALS: BP 94/52
--- NOTE | 2021-10-25 13:56 | NUR ---
66 y/o female bib amb from [facility], facility reports she has nephrostomy tubes placed at [facility] for sepsis admit, goran requested to be sent here for tube removal. a&ox4, does not ambulate. report was given from cris perez. denies nausea, vomiting, diarrhea. skin is pale/loose/cool/dry. a&o x4 does not ambulate. lungs clear bl, heart rate even and regular. denies dysuria, hematuria. pt denies any fever, cp, sob, or cough at this time. pt states pain is 0/10 at this time. patient positioned for comfort. hob elevated. bed down. ermd made aware of pt. pmh: metabolic encephalopathy, dm2, hld, htn, epilepsy, bipolar schizoaffefctive nka med: see list
--- NOTE | 2021-10-25 14:55 | NUR ---
labs cancelled at this time. urine, yellow cloudy urine collected from right nephrostomy tube, given to lab.
--- NOTE | 2021-10-25 15:21 | NUR ---
called stephon perez for report. pt will be sent back with nephrostomy tubes in place per travis
[2021-10-25 15:53] VITALS: BP 94/52
--- NOTE | 2021-10-25 15:54 | NUR ---
Patient discharged with v/s stable. Written and verbal after care instructions given and explained. Patient verbalized understanding, report was given to Ankita HANEY. [facility] Transport cortney to [facility]. All questions addressed prior to discharge. Advised to follow up with PMD.
--- NOTE | 2021-10-25 16:38 | NUR ---
[facility] TRANSPORT HERE FOR PT PROFESSOR OF GERMAN
[2021-10-25 17:37] LABS: APPEARANCE,URINE TURBID (CLEAR); COLOR,URINE YELLOW (YELLOW)
[2021-10-25 17:38] LABS: BILIRUBIN,URINE 1+ (NEGATIVE); BLOOD, URINE 3+ (NEGATIVE); LEUKOCYTE ESTERASE ,URINE 3+ (NEGATIVE); NITRITE, URINE POSITIVE (NEGATIVE); UGLUCOSE NEGATIVE (NEGATIVE)
[2021-10-25 18:11] LABS: OTHER CASTS, URINE None Seen /LPF (None Seen)
== END 2021-10-25 16:37 ==
LOC: MED 12:48
DX: N20.0 Calculus of kidney (principal); I10 Essential (primary) hypertension; K21.9 Gastro-esophageal reflux disease without esophagitis; Z86.73 Personal history of transient ischemic attack (TIA), and cerebral infarction without residual deficits
CPT/HCPCS: 81001; 87086; 99284